=== PATIENT | female | born 1990 | race Caucasian/White ===

== ENCOUNTER 2022-12-11 07:55 | Emergency (ER) | payer MEDICAID, OTHER ==
[~2022-12-11] VITALS: Ht 162.6 cm; Wt 76.5 kg
[2022-12-11 08:14] VITALS: BP 119/78
[2022-12-11 09:19] LABS: Amphetamine Screen, Urine NEGATIVE (NEGATIVE); Barbiturate Scree,Urine NEGATIVE (NEGATIVE); Benzodiazephine Screen, Urine NEGATIVE (NEGATIVE); Cannabinoid Screen, Urine NEGATIVE (NEGATIVE); Cocaine Screen, Urine POSITIVE (NEGATIVE); Opiate Scree,Urine NEGATIVE (NEGATIVE); Phencyclidine Screen, Urine NEGATIVE (NEGATIVE)
== END 2022-12-11 18:24 | disposition left against medical advice (07) ==
LOC: ER 07:55
DX: R45.851 Suicidal ideations (principal)
CPT/HCPCS: 36415; 80307; 80320; 81025

== ENCOUNTER 2023-04-12 15:00 | Emergency (ER) | payer MEDICAID ==
[~2023-04-12] VITALS: Ht 162.6 cm; Wt 74.1 kg
[2023-04-12 15:17] VITALS: BP 119/67
[2023-04-12] MEDS ORDERED: IBUP-1456 PO (16:36)
== END 2023-04-12 16:49 | disposition home or self-care (01) ==
LOC: ER 15:00
DX: S06.899A Other specified intracranial injury with loss of consciousness of unspecified duration, initial encounter (principal); S00.03XA Contusion of scalp, initial encounter; Y04.2XXA Assault by strike against or bumped into by another person, initial encounter; Y93.89 Activity, other specified; Y92.89 Other specified places as the place of occurrence of the external cause; Y99.8 Other external cause status
CPT/HCPCS: 70450

== ENCOUNTER 2023-07-31 04:39 | Emergency (ER) | payer MEDICAID ==
[~2023-07-31] VITALS: Ht 162.6 cm; Wt 72.7 kg
[~2023-07-31 04:39] MED LIST: IBUP-1456 PO
[2023-07-31 04:50] VITALS: BP 136/92; PULSE 92; RESP 18; O2SAT 98
[2023-07-31 06:25] LABS: Amphetamine Screen, Urine Neg (NEGATIVE)
[2023-07-31 06:26] LABS: Barbiturate Scree,Urine Neg (NEGATIVE); Benzodiazephine Screen, Urine Neg (NEGATIVE); Cocaine Screen, Urine Pos (NEGATIVE); Opiate Scree,Urine Neg (NEGATIVE); Phencyclidine Screen, Urine Neg (NEGATIVE)
[2023-07-31 06:27] LABS: Cannabinoid Screen, Urine Neg (NEGATIVE)
== END 2023-07-31 07:37 | disposition left against medical advice (07) ==
LOC: ER 04:39
DX: R53.1 Weakness (principal); R20.2 Paresthesia of skin; F41.9 Anxiety disorder, unspecified; F32.9 Major depressive disorder, single episode, unspecified; Z79.899 Other long term (current) drug therapy; Z53.21 Procedure and treatment not carried out due to patient leaving prior to being seen by health care provider
CPT/HCPCS: 80307

== ENCOUNTER 2023-11-22 13:04 | Emergency (ER) | payer MEDICAID ==
[~2023-11-22] VITALS: Ht 162.6 cm; Wt 76.0 kg
[2023-11-22 15:11] VITALS: BP 124/82; PULSE 83; RESP 18; TEMP 97.8; O2SAT 96
[2023-11-22] MEDS ORDERED: OMEP-434 PO (15:19)
[2023-11-22] MEDS ORDERED: ZOFR4T PO (15:19)
[2023-11-22] MEDS: ONDANSETRON ODT 4 MG TAB PO ONE (15:20)
== END 2023-11-22 15:38 | disposition home or self-care (01) ==
LOC: ER 13:04
DX: R11.2 Nausea with vomiting, unspecified (principal); F14.10 Cocaine abuse, uncomplicated
CPT/HCPCS: 99283; Q0162

== ENCOUNTER 2024-03-14 19:51 | Emergency (ER) | payer MEDICAID ==
[~2024-03-14] VITALS: Ht 162.6 cm; Wt 70.0 kg
[~2024-03-14 19:51] MED LIST changes: +OMEP-434 PO; +ZOFR4T PO
[2024-03-14 20:00] VITALS: BP 132/81; PULSE 91; RESP 20; O2SAT 99
[2024-03-14 20:29] LABS: Basophils # (auto) 0.1 10 ^3/uL (0-0.2); Basophils % (auto) 0.5 % (0.0-2.0); Eosinophils # (auto) 0.4 10 ^3/uL (0-0.8); Eosinophils % (auto) 1.6 % (0.0-7.0); Lymphocytes # (auto) 1.2 10 ^3/uL (0.4-5.4); Lymphocytes % (auto) 5.1 % (10.0-50.0); Mean Corpuscular Hgb Conc. 31.5 g/dL (32.0-36.0); Mean Corpuscular Volume 101.5 fL (80.0-100.0); Monocytes # (auto) 1.9 10 ^3/uL (0-1.3); Neutrophils # (auto) 20.5 10 ^3/uL (1.6-8.6); Neutrophils % (auto) 84.8 % (37.0-80.0); Nucleated Red Blood Cells % 0.1 %; Red Blood Cells 3.45 10^6/uL (4.0-5.20); Red Cell Distribution Width 17.9 % (11.8-14.3); White Blood Cell 24.2 10^3/uL (4.4-10.8)
[2024-03-14 20:32] LABS: Urine Bacteria None Seen /hpf (None Seen)
[2024-03-14 20:39] LABS: Chloride 107 mmol/L (98-107); Sodium 142 mmol/L (136-145)
[2024-03-14 20:40] LABS: Anion Gap 6 (5-15); Calcium 10.1 mg/dL (8.5-10.1); Carbon Dioxide 29 mmol/L (20-30)
[2024-03-14 20:45] LABS: BUN/Creatinine Ratio 16.5 (10.0-20.0); Blood Urea Nitrogen 13 mg/dL (9-23); Glucose 92 mg/dL (74-106)
[2024-03-14 20:56] LABS: Urine Blood TRACE /uL (Negative); Urine Clarity Clear (Clear); Urine Color Light-Yellow (Yellow); Urine Hyaline Cast FEW /lpf (0 - 2); Urine Mucus FEW (None Seen); Urine Protein, UAD Negative (Negative); Urine Specific Gravity 1.025 (1.001-1.035); Urine Urobilinogen Normal (Negative); Urine WBC 2 /hpf (0 - 5); Urine pH 6.5 (5.0-9.0)
[2024-03-14 21:06] LABS: Amphetamine Screen, Urine Neg (NEGATIVE); Barbiturate Scree,Urine Neg (NEGATIVE); Benzodiazephine Screen, Urine Neg (NEGATIVE); Cannabinoid Screen, Urine Neg (NEGATIVE); Cocaine Screen, Urine Neg (NEGATIVE); Opiate Scree,Urine Neg (NEGATIVE); Phencyclidine Screen, Urine Neg (NEGATIVE)
== END 2024-03-15 00:53 | disposition home or self-care (01) ==
LOC: ER 19:51
DX: R53.1 Weakness (principal); C50.919 Malignant neoplasm of unspecified site of unspecified female breast; F12.10 Cannabis abuse, uncomplicated; Z51.11 Encounter for antineoplastic chemotherapy
CPT/HCPCS: 36415; 80048; 80307; 81001; 81025; 82962; 85025; 93005

== ENCOUNTER 2024-12-15 13:21 | Emergency (ER) | payer MEDICAID ==
[~2024-12-15] VITALS: Ht 162.6 cm; Wt 76.2 kg
--- NOTE | 2024-12-15 13:44 | ED.PDOC ---
GI ASSESSMENT HPI Comments 89 year old female presents to the ED with chief complaint of blood in stool. Patient reports that she had started to experience bright red blood in her stools since yesterday. Patient relays that she has a history of hemorrhoids, however, she is not sure if she has another one at this time causing the bleeding. Patient denies any constipation, N/V/D, abdominal pain, fever, or chills. Time Seen by MD: 13:32 Primary Care Provider: [facility] Reviewed Notes: Nurses Notes, Medications, Allergies Allergies: Coded Allergies: NO KNOWN ALLERGIES (Unverified , 12/11/22) Home Meds Active Scripts Omeprazole Magnesium (Omeprazole) 20 Mg Tab, 20 MG PO DAILY, #30 TAB Prov:TAYO MOBLEY 11/22/23 Ondansetron Odt 4MG Tab (ZOFRAN PO) 4 Mg Tb, 4 MG PO BID, #20 TAB ODT TAB-DISSOLVE IN MOUTH, THEN SWALLOW Prov:TAYO MOBLEY 11/22/23 Ibuprofen (Ibuprofen) 800 Mg Tab, 1 TAB PO TID, #30 TAB Prov:TAYO MOBLEY 04/12/23 Information Source: Patient Mode of Arrival: Ambulatory Timing: Days Duration: Since onset Prehospital treatment: None Quality: None Vomitus: None Stool: Normal, Blood Streaked Severity: Moderate Recent: None Recent Hx of: None Pain Location: None Modifying Factors: Nothing Associated sign and symptoms: Blood in Stool Past Medical History PAST MEDICAL HISTORY: Cancer Surgical History: Denies all surgeries IP ATTORNEY History: Denies all IP ATTORNEY Hx Family History Family History: Reviewed,noncontributory to illness Social History Smoker: Non-Smoker Alcohol: Occasionally Drugs: Cocaine Lives In: Home Constitutional: denies: chills, diaphoresis, fatigue, fever, malaise, sweats, weakness, others EENTM: denies: blurred vision, double vision, ear bleeding, ear discharge, ear drainage, ear pain, ear ringing, eye pain, eye redness, hearing loss, mouth pain, mouth swelling, nasal discharge, nose bleeding, nose congestion, nose pain, photophobia, tearing, throat pain, throat swelling, voice changes, others Respiratory: denies: cough, hemoptysis, orthopnea, SOB at rest, shortness of breath, SOB with excertion, stridor, wheezing, others Cardiovascular: denies: chest pain, dizzy spells, diaphoresis, Dyspnea on exertion, edema, irregular heart beat, left arm pain, lightheadedness, palpitations, PND, syncope, others Gastrointestinal: denies: abdomen distended, abdominal pain, blood streaked bowels, constipated, diarrhea, dysphagia, difficulty swallowing, hematemesis, melena, nausea, poor appetite, poor fluid intake, rectal bleeding, rectal pain, vomiting, others Genitourinary: denies: abnormal vagina bleeding, burning, dyspareunia, dysuria, flank pain, frequency, hematuria, incontinence, pain, , vagina discharge, urgency, others Neurological: denies: dizziness, fainting, headache, left sided numbness, left sided weakness, numbness, paresthesia, pre-existing deficit, right sided numbness, right sided weakness, seizure, speech problems, tingling, tremors, weakness, others Musculoskeletal: denies: back pain, gout, joint pain, joint swelling, muscle pain, muscle stiffness, neck pain, others Integumetry: denies: bruises, change in color, change in hair/nails, dryness, laceration, lesions, lumps, rash, wounds, others Allergic/Immunocompromised: denies: Difficulty Healing, Frequent Infections, Hives, Itching, others Hematologic/Lymphatic: denies: anemia, blood clots, easy bleeding, easy bruising, swollen glands, others Endocrine: denies: excessive hunger, excessive sweating, excessive thirst, excessive urination, flushing, intolerance to cold, intolerance to heat, unexplained weight gain, unexplained weight loss, others Psychiatric: denies: anxiety, bipolar disorder, depression, hopeless, panic disorder, schizophrenia, sleepless, suicidal, others All Other Systems: Reviewed and Negative Physical Exam General Appearance: Moderate Distress, Normal HEENT: Normal ENT Inspection, PERRL/EOMI Neck: Full Range of Motion, Non-Tender, Normal, Normal Inspection Respiratory: Chest Non-Tender, Lungs Clear, No Accessory Muscle Use, No Respiratory Distress, Normal Breath Sounds Cardiovascular: No Edema, No JVD, No Murmur, No Gallop, Normal Peripheral Pulses, Regular Rate/Rhythm Breast Exam: Deferred Gastrointestinal: No Organomegaly, Non Tender, No Pulsatile Mass, Normal Bowel Sounds, Soft Genitalia: Deferred Pelvic: Deferred Rectal: Deferred Extremities: No calf tenderness, Normal capillary refill, Normal inspection, Normal range of motion, Non-tender, No pedal edema Musculoskeletal : Apperance: Normal Neurologic: Alert, palliative care specialist II-XII nml as Tested, No Motor Deficits, Normal Affect, Normal Mood, No Sensory Deficits Cerebellar Function: Normal Reflexes: Normal Skin: Dry, Normal Color, Warm Peripheral Pulses: 3+ Radial (R), 3+ Radial (L) Lymphatic: No Adenopathy Was a procedure done? Was a procedure done?: No GI differential Dx Differential Diagnosis: Constipation, Diverticular disease, Esophagitis, Gastritis/PUD, Gastroenteritis X-Ray, Labs, Meds, VS Vital Signs Date Time Temp Pulse Resp B/P (MAP) Pulse Ox O2 Delivery O2 Flow Rate FiO2 12/15/24 13:30 98.1 80 20 117/76 (90) 96 Lab Test 12/15/24 14:25 Range/Units White Blood Count 3.5 L 4.4-10.8 10^3/uL Red Blood Count 3.08 L 4.0-5.20 10^6/uL Hemoglobin 11.9 L 12.2-16.2 g/dL Hematocrit 33.8 L 36.0-46.0 % Mean Corpuscular Volume 109.7 H 80.0-100.0 fL Mean Corpuscular Hemoglobin 38.6 H 28.0-32.0 pg Mean Corpuscular Hemoglobin Concent 35.2 32.0-36.0 g/dL Red Cell Distribution Width 13.5 11.8-14.3 % Platelet Count 235 140-450 10^3/uL Mean Platelet Volume 6.2 L 6.9-10.8 fL Neutrophils (%) (Auto) 68.3 37.0-80.0 % Lymphocytes (%) (Auto) 18.1 10.0-50.0 % Monocytes (%) (Auto) 10.2 0.0-12.0 % Eosinophils (%) (Auto) 2.6 0.0-7.0 % Basophils (%) (Auto) 0.8 0.0-2.0 % Neutrophils # (Auto) 2.4 1.6-8.6 10 ^3/uL Lymphocytes # (Auto) 0.6 0.4-5.4 10 ^3/uL Monocytes # (Auto) 0.4 0-1.3 10 ^3/uL Eosinophils # (Auto) 0.1 0-0.8 10 ^3/uL Basophils # (Auto) 0 0-0.2 10 ^3/uL Nucleated Red Blood Cells 0.0 % Sodium Level 141 136-145 mmol/L Potassium Level 3.6 3.5-5.1 mmol/L Chloride Level 106 98-107 mmol/L Carbon Dioxide Level 28 20-31 mmol/L Anion Gap 7 5-15 Blood Urea Nitrogen 12 9-23 mg/dL Creatinine 0.88 0.550-1.02 mg/dL Glomerular Filtration Rate Calc 88 >90 mL/min BUN/Creatinine Ratio 13.6 10.0-20.0 Serum Glucose 84 74-106 mg/dL Calcium Level 10.6 H 8.7-10.4 mg/dL Patient alert. Complaining of bright red blood per rectum. History of hemorrhoid. Vitals stable. Answering questions. Hemoglobin above 10. Abdomen is soft nontender. [place] in color. [place] nailbeds. No sign of anemia. Heart rate within normal limits. Saturation pristine on room air. No sign of any sepsis. Was given prescription of Anusol. Explained to the patient. Was told to follow up with her primary care physician. Was told to come back if there is any problem. Time of 1ST Reevaluation: 14:32 Reevaluation 1ST: Improved Patient Education/Counseling: Diagnosis, Treatment Family Education/Counseling: No Family Present Additional Information Previous visit documents reviewed: 03/14/24 for generalized weakness The following tests were ordered, and results were reviewed by me: CBC, BMP, UA Additional Information was gathered from interviewing the following independent historians: None I reviewed and agreed with the following test results read by other providers: None I discussed treatment and results with medical personnel. Departure 1 Departure Time of Disposition: 15:32 Impression: Primary Impression: Hemorrhoid Qualified Codes: K64.9 - Unspecified hemorrhoids Disposition: HOME / SELF CARE / HOMELESS Condition: Good e-Prescriptions Hydrocortisone Base (Anusol-Hc) 2.5 % Cre 1 APPLIC TOP BID for 10 Days, #30 GRAMS 1 Refill Prov: MARSHA LAWRENCE MD 12/15/24 Discharged With: Self Critical Care Note Critical Care Time?: No Stability Stability form required: No Heart Score Heart Score: Heart Score Response (Comments) Value History N/A 0 EKG N/A 0 Age N/A 0 Risk Factors N/A 0 Troponin N/A 0 Total 0 I personally scribed for MARSHA LAWRENCE MD ([email or web address]) on 12/15/24 at 13:44. Electronically submitted by Gustavo Ye ([email or web address]). MARSHA LAWRENCE MD Dec 15, 2024 13:44
[2024-12-15 14:56] LABS: Basophils # (auto) 0 10 ^3/uL (0-0.2); Eosinophils # (auto) 0.1 10 ^3/uL (0-0.8); Eosinophils % (auto) 2.6 % (0.0-7.0); Hemoglobin 11.9 g/dL (12.2-16.2); Lymphocytes # (auto) 0.6 10 ^3/uL (0.4-5.4); Monocytes # (auto) 0.4 10 ^3/uL (0-1.3)
[2024-12-15 14:58] LABS: Basophils % (auto) 0.8 % (0.0-2.0); Hematocrit 33.8 % (36.0-46.0); Lymphocytes % (auto) 18.1 % (10.0-50.0); Mean Corpuscular Hemoglobin 38.6 pg (28.0-32.0); Mean Corpuscular Hgb Conc. 35.2 g/dL (32.0-36.0); Mean Corpuscular Volume 109.7 fL (80.0-100.0); Monocytes % (auto) 10.2 % (0.0-12.0); Neutrophils # (auto) 2.4 10 ^3/uL (1.6-8.6); Neutrophils % (auto) 68.3 % (37.0-80.0); Platelet Count (auto) 235 10^3/uL (140-450); Red Blood Cells 3.08 10^6/uL (4.0-5.20); Red Cell Distribution Width 13.5 % (11.8-14.3); White Blood Cell 3.5 10^3/uL (4.4-10.8)
[2024-12-15 14:59] LABS: Chloride 106 mmol/L (98-107); Potassium 3.6 mmol/L (3.5-5.1); Sodium 141 mmol/L (136-145)
[2024-12-15 15:00] LABS: Anion Gap 7 (5-15); Carbon Dioxide 28 mmol/L (20-31)
[2024-12-15 15:05] LABS: BUN/Creatinine Ratio 13.6 (10.0-20.0); Blood Urea Nitrogen 12 mg/dL (9-23); Glucose 84 mg/dL (74-106)
[2024-12-15 15:06] LABS: Calcium 10.6 mg/dL (8.7-10.4)
[2024-12-15] MEDS ORDERED: HYDR2.5C39 TOP (15:33)
[2024-12-15 15:43] VITALS: BP 127/77; PULSE 77; RESP 17; TEMP 98; O2SAT 97
[2024-12-15 17:23] LABS: Urine Bacteria None Seen /hpf (None Seen)
[2024-12-15 17:37] LABS: Urine Blood TRACE /uL (Negative); Urine Clarity Clear (Clear); Urine Color Light-Yellow (Yellow); Urine Mucus FEW (None Seen); Urine Protein, UAD Negative (Negative); Urine Specific Gravity 1.022 (1.001-1.035); Urine Squamous Epithelial Cell FEW /hpf (<5); Urine Urobilinogen Normal (Negative); Urine WBC 18 /HPF (0-5); Urine pH 5.5 (5.0-9.0)
== END 2024-12-15 15:47 | disposition home or self-care (01) ==
LOC: ER 13:21
DX: K64.9 Unspecified hemorrhoids (principal); Z79.1 Long term (current) use of non-steroidal anti-inflammatories (NSAID); Z79.899 Other long term (current) drug therapy
CPT/HCPCS: 36415; 80048; 81001; 85025

== ENCOUNTER 2025-06-28 00:36 | Emergency (ER) | payer MEDICAID ==
[~2025-06-28] VITALS: Ht 162.6 cm; Wt 68.4 kg
[~2025-06-28 00:36] MED LIST changes: +HYDR2.5C39 TOP
--- NOTE | 2025-06-28 01:10 | DVH ---
CHEST RADIOGRAPH Indication: cp Technique: Single frontal view of the chest was obtained COMPARISON: None FINDINGS: Lines and Tubes: None Lungs: Clear Pleura: No effusion. No pneumothorax. Cardiomediastinal contours: Unremarkable Bones: Unremarkable. Right axillary surgical clips. IMPRESSION: 1. No acute cardiopulmonary disease.
[2025-06-28] MEDS: KETOROLAC TROMETH 30 MG/ML 1ML VIAL IM ONE (01:39)
[2025-06-28 01:41] VITALS: RESP 19; O2SAT 100
[2025-06-28 01:46] LABS: Hematocrit 37.0 % (36.0-46.0); Hemoglobin 12.8 g/dL (12.2-16.2); Mean Corpuscular Hemoglobin 38.1 pg (28.0-32.0); Mean Corpuscular Volume 110.0 fL (80.0-100.0); Nucleated Red Blood Cells % 0.1 %
[2025-06-28 01:53] LABS: Potassium 3.5 mmol/L (3.5-5.1); Sodium 143 mmol/L (136-145)
[2025-06-28 01:54] LABS: Anion Gap 9 (5-15); Calcium 9.4 mg/dL (8.7-10.4); Carbon Dioxide 26 mmol/L (20-31)
[2025-06-28 01:59] LABS: BUN/Creatinine Ratio 11.7 (10.0-20.0); Blood Urea Nitrogen 12 mg/dL (9-23); Chloride 108 mmol/L (98-107); Glucose 107 mg/dL (74-106)
--- NOTE | 2025-06-28 03:04 | ED.PDOC ---
History of Present Illness HPI Comments 34-year-old female who presents with complaint of constant, right chest and shoulder pain for 1 week. No endorsement of any recent trauma or injury. Significant history for in remission breast cancer. Denies any shortness of breath, nausea, vomiting, or further associated symptoms. REVIEW OF SYSTEMS: General: No fever, no chills, or fatigue HEENT: No sore throat, no earache, no congestion, no neck pain. Cardiac: chest pain. No palpitations. Lungs: No shortness of breath, no cough. GI: No nausea, no vomiting, no diarrhea, no constipation, no abdominal pain : No dysuria, frequency, or urgency. No hematuria. Musculoskeletal: Right shoulder pain , no joint swelling, no extremity edema. Skin: No rash, no itching. Neuro: No headache, no dizziness, no weakness PHYSICAL EXAM: General: Awake, alert and oriented. No acute distress. Skin: Skin in warm, dry and intact. Appropriate color for ethnicity. HEENT: The head is normocephalic and atraumatic. Conjunctivae are clear without exudates or hemorrhage. Sclera is non-icteric. EOM are intact. No signs of nystagmus. Eyelids are normal in appearance without swelling or lesions. Oral mucosa is pink and moist Neck: The neck is supple with normal range of motion. No JVD. Cardiac: Heart rate and rhythm are normal. No murmurs, gallops, or rubs are auscultated. Respiratory: No signs of respiratory distress. Lung sounds are clear in all lobes bilaterally without rales, rhonchi, or wheezes. Abdominal: Abdomen is soft, non-tender without distention, guarding or rigidity. Bowel sounds are present and normoactive in all four quadrants. Extremities: Posterior right shoulder tenderness with painful range of motion but no signs of deformity, diffusion, or erythema. Upper and lower extremities are atraumatic in appearance without deformity or edema. Musculoskeletal: Right anterior chest wall tenderness. Neurological: The patient is awake, alert and oriented to person, place, and time with normal speech. Speech is clear. There is no facial asymmetry. Psychiatric: Appropriate mood and affect. Good judgement and insight. Chief Complaint: Chest Pain Time Seen by MD: 01:13 Primary Care Provider: HADICHI Allergies: Coded Allergies: NO KNOWN ALLERGIES (Unverified , 12/11/22) Home Meds Active Scripts Hydrocortisone Base (Anusol-Hc) 2.5 % Cre, 1 APPLIC TOP BID for 10 Days, #30 GRAMS 1 Refill Prov:MARSHA LAWRENCE MD 12/15/24 Omeprazole Magnesium (Omeprazole) 20 Mg Tab, 20 MG PO DAILY, #30 TAB Prov:TAYO MOBLEY 11/22/23 Ondansetron Odt 4MG Tab (ZOFRAN PO) 4 Mg Tb, 4 MG PO BID, #20 TAB ODT TAB-DISSOLVE IN MOUTH, THEN SWALLOW Prov:TAYO MOBLEY 11/22/23 Ibuprofen (Ibuprofen) 800 Mg Tab, 1 TAB PO TID, #30 TAB Prov:TAYO MOBLEY 04/12/23 Information Source: Patient Mode of Arrival: Ambulatory Past Medical History PAST MEDICAL HISTORY: Cancer Surgical History: Denies all surgeries 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 Was a procedure done?: No EKG EKG #1: Pulse Rate (adult): 97 [place]: Normal Cardiac Rhythm: NSR Block: None Hypertrophy: None ST: Normal EKG #2: Pulse Rate (adult): 64 [place]: Normal Cardiac Rhythm: NSR Block: None Hypertrophy: None ST: Normal EKG #3: Pulse Rate (adult): 54 [place]: Normal Cardiac Rhythm: NSR Block: None Hypertrophy: None ST: Normal Differential Dx Considerations may include: Differential diagnoses considered include acute ischemic coronary syndrome, aortic dissection, cardiac tamponade, mediastinitis, pulmonary embolus, pneumothorax, tension pneumothorax, esophageal rupture, coronary artery vasospasm, myocarditis, pericarditis, pneumonia, pulmonary edema, esophageal tear, pancreatitis, aortic stenosis, dilated cardiomyopathy, hypertrophic cardiomyopathy, mitral valve prolapse, malignancy, pleuritis, pneumomediastinum, primary pulmonary hypertension, cholecystitis, esophageal spasm, esophagus, gastritis, GERD, peptic ulcer disease, costochondritis, fibromyalgia, rib fracture, herpes zoster, radicular syndromes, thoracic outlet syndrome, somatization. X-Ray, Labs, Meds, VS Vital Signs Date Time Temp Pulse Resp B/P (MAP) Pulse Ox O2 Delivery O2 Flow Rate FiO2 06/28/25 05:26 98.2 60 16 117/55 (75) 99 98.2 06/28/25 05:17 54 06/28/25 04:13 54 06/28/25 02:10 64 06/28/25 01:41 19 100 Room Air* 0 21 06/28/25 01:34 73 22 94/53 (67) 100 06/28/25 00:50 99.6 108 22 114/69 96 99.6 06/28/25 00:41 97 Lab Test 06/28/25 04:43 06/28/25 02:50 06/28/25 01:24 Range/Units Troponin I High Sensitivity < 3 L < 3 L < 3 L </=34 ng/L White Blood Count 3.7 L 4.4-10.8 10^3/uL Red Blood Count 3.36 L 4.0-5.20 10^6/uL Hemoglobin 12.8 12.2-16.2 g/dL Hematocrit 37.0 36.0-46.0 % Mean Corpuscular Volume 110.0 H 80.0-100.0 fL Mean Corpuscular Hemoglobin 38.1 H 28.0-32.0 pg Mean Corpuscular Hemoglobin Concent 34.6 32.0-36.0 g/dL Red Cell Distribution Width 12.4 11.8-14.3 % Platelet Count 200 140-450 10^3/uL Mean Platelet Volume 6.9 6.9-10.8 fL Neutrophils (%) (Auto) 54.7 37.0-80.0 % Lymphocytes (%) (Auto) 28.7 10.0-50.0 % Monocytes (%) (Auto) 11.7 0.0-12.0 % Eosinophils (%) (Auto) 3.8 0.0-7.0 % Basophils (%) (Auto) 1.1 0.0-2.0 % Neutrophils # (Auto) 2.0 1.6-8.6 10 ^3/uL Lymphocytes # (Auto) 1.1 0.4-5.4 10 ^3/uL Monocytes # (Auto) 0.4 0-1.3 10 ^3/uL Eosinophils # (Auto) 0.1 0-0.8 10 ^3/uL Basophils # (Auto) 0 0-0.2 10 ^3/uL Nucleated Red Blood Cells 0.1 % D-Dimer, Quantitative 0.22 0.0-0.49 mg/L FEU Sodium Level 143 136-145 mmol/L Potassium Level 3.5 3.5-5.1 mmol/L Chloride Level 108 H 98-107 mmol/L Carbon Dioxide Level 26 20-31 mmol/L Anion Gap 9 5-15 Blood Urea Nitrogen 12 9-23 mg/dL Creatinine 1.03 H 0.550-1.02 mg/dL Glomerular Filtration Rate Calc 73 >90 mL/min BUN/Creatinine Ratio 11.7 10.0-20.0 Serum Glucose 107 H 74-106 mg/dL Calcium Level 9.4 8.7-10.4 mg/dL B-Type Natriuretic Peptide 12.94 0-100 pg/mL [place] [id number] Ph: [phone] DIAGNOSTIC IMAGING Diagnostic Imaging Report : [id number] Signed PATIENT: PEDRO HERRERA ACCT: [id number] UNIT: [id number] : 1990 LOC: ER ROOM / BED: / AGE / SEX: 34 / F ADM STATUS: REG ER SERVICE ORDERING PHYSICIAN: FLORENCE VALVERDE MD PROCEDURE(s): CXR1 - CHEST XRAY 1 VIEW REASON: cp ORDER NUMBER(s): [id number], ACCESSION NUMBER(s): [id number] CHEST RADIOGRAPH Indication: cp Technique: Single frontal view of the chest was obtained COMPARISON: None FINDINGS: Lines and Tubes: None Lungs: Clear Pleura: No effusion. No pneumothorax. Cardiomediastinal contours: Unremarkable Bones: Unremarkable. Right axillary surgical clips. IMPRESSION: 1. No acute cardiopulmonary disease. ATED BY: JACK DEMPSEY MD DICTATED DATE/TIME: 06/28/25106 SIGNED BY: JACK DEMPSEY MD SIGNED DATE/TIME: 06/28/25106 CC: Time of 1ST Reevaluation: 01:43 Reevaluation 1ST: Unchanged Patient Education/Counseling: Treatment, Need For Follow Up Family Education/Counseling: No Family Present SEPSIS Sepsis Screen Date sepsis recognized/suspect: Jun 28, 2025 Time Sepsis recognized/suspect: 55 Recent Procedure: No On Antibiotic Therapy: No Respiratory Rate >20: No Heart Rate >90: No Temp<36 C (96.8 F) or >38.3 C: No SBP <90 or MAP <65 mmHG: No New Acute Mental Status Change: No Is the patient on CPAP, BIPAP,: No Physician Orders Chest Xray 1 View (06/28/25 00:51) Patient Case Manager (06/28/25 ) Vital Signs Date Time Temp Pulse Resp B/P (MAP) Pulse Ox O2 Delivery O2 Flow Rate FiO2 06/28/25 05:26 98.2 60 16 117/55 (75) 99 98.2 06/28/25 05:17 54 06/28/25 04:13 54 06/28/25 02:10 64 06/28/25 01:41 19 100 Room Air* 0 21 06/28/25 01:34 73 22 94/53 (67) 100 06/28/25 00:50 99.6 108 22 114/69 96 99.6 06/28/25 00:41 97 Laboratory Tests Test 06/28/25 01:24 White Blood Count 3.7 10^3/uL (4.4-10.8) L Departure 1 Departure Time of Disposition: 04:30 Impression: Primary Impression: Chest pain Disposition: HOME / SELF CARE / HOMELESS Condition: Stable Additional Instructions: ED DISCHARGE INSTRUCTIONS Instructions: Please read all instructions provided in this packet carefully. Although you have been discharged from the Emergency Department, this does not mean that you have a "clean bill of health". No definitive diagnosis for your symptoms has been made today. It is possible that you are in the process of developing a serious illness. This is why you must return to the ED without fail if any new or worsening symptoms (especially if your symptoms include chest pain, trouble breathing, abdominal pain, fever, headache, confusion, trouble seeing, or trouble walking) It is also very important that you see a primary care provider (PCP) within the next 3-5 days to follow up. If you are unable to get an appointment, return to the ED for re-evaluation. CHEST PAIN EDUCATION There are many things that can cause chest pain. Some are not serious and will get better on their own in a few days. But some kinds of chest pain need more testing and treatment. Your doctor may have recommended a follow-up visit in the next few days. If you are not getting better, you may need more tests or treatment. Even though your doctor has released you, you still need to watch for any problems. The doctor carefully checked you, but sometimes problems can develop later. If you have new symptoms or if your symptoms do not get better, get medical care right away. If you have worse or different chest pain or pressure that lasts more than 5 minutes or you passed out (lost consciousness), call 911 or seek other emergency help right away. A medical visit is only one step in your treatment. Even if you feel better, you still need to do what your doctor recommends, such as going to all suggested follow-up appointments and taking medicines exactly as directed. This will help you recover and help prevent future problems. How can you care for yourself at home? Rest until you feel better. Take your medicine exactly as prescribed. Call your doctor if you think you are having a problem with your medicine. Do not drive after taking a prescription pain medicine. When should you call for help? Call 911 if: You passed out (lost consciousness). You have severe difficulty breathing. You have symptoms of a heart attack. These may include: Chest pain or pressure, or a strange feeling in your chest. Sweating. Shortness of breath. Nausea or vomiting. Pain, pressure, or a strange feeling in your back, neck, jaw, or upper belly or in one or both shoulders or arms. Lightheadedness or sudden weakness. A fast or irregular heartbeat. After you call 911, the roll over press operator may tell you to chew 1 adult-strength or 2 to 4 low-dose aspirin. Wait for an ambulance. Do not try to drive yourself. Call your doctor now or seek immediate medical care if: You have any trouble breathing. You have new or different chest pain. You are dizzy or lightheaded, or you feel like you may faint. Watch closely for changes in your health, and be sure to contact your doctor if you do not get better as expected. Current as of: May 13, 2024 Author: [employer] Staff Comments MDM: 34-year-old female with right-sided chest pain. EKG negative for signs of ischemia. High sensitivity troponin negative. CXR shows no acute process. Presentation not suggestive of acute coronary syndrome, pulmonary embolism or aortic dissection. Patient improved at time of discharge. Patient has not been hypoxic, in re spiratory distress or dyspneic during the ED observation. Patient able to ambulate without difficulty. Patient felt stable for discharge to follow up with PCP promptly. Patient advised to return to the ED with any new, worsening or concerning symptoms or inability to follow up with PCP. Extensive evaluation was performed in attempt to identify or rule out: (See differential diagnosis section) The following tests were ordered, and results were reviewed by me and discussed with patient: (See diagnostic results section) The following test were independently interpreted by me: EKG I reviewed and agreed with the following test results read by other providers: Chest x-ray Decision regarding hospitalization or escalation of hospital level of care: Risks and benefits of admission for further treatment of patient's condition was considered however due to patient's stable condition patient will be discharged to follow up closely or return to care for worsening of condition or inability to follow up. Critical Care Note Critical Care Time?: No Stability Stability form required: No Heart Score Heart Score: Heart Score Response (Comments) Value History N/A 0 EKG N/A 0 Age N/A 0 Risk Factors N/A 0 Troponin N/A 0 Total 0 I personally scribed for FLORENCE VALVERDE MD ([email or web address]) on 06/28/25 at 03:04. Electronically submitted by Bartolo Loo ([email or web address]). I personally scribed for FLORENCE VALVERDE MD ([email or web address]) on 06/28/25 at 05:17. Electronically submitted by Bartolo Loo ([email or web address]). FLORENCE VALVERDE MD Jun 28, 2025 03:04
[2025-06-28 05:26] VITALS: BP 117/55; PULSE 60; RESP 16; TEMP 98.2; O2SAT 99
--- NOTE | 2025-06-28 08:21 | ECG ---
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
--- NOTE | 2025-06-28 08:22 | ECG ---
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
--- NOTE | 2025-06-28 08:23 | ECG ---
[facility] Test Date: 2025-06-28 Test Time: 00:41:21 Pat Name: PEDRO HERRERA Department[facility] Patient ID: [id number] Room: Gender: F Donor Services Manager: lilliam : 1990 Requested By: FLORENCE VALVERDE Order Number: [id number] Reading MD: Johan Tom Measurements Intervals [place] Rate: 97 P: 0 [place]: 0 QRS: 64 QRSD: 71 T: 27 QT: 369 QTc: 469 Interpretive Statements Atrial fibrillation Low voltage, precordial leads RSR' in V1 or V2, probably normal variant Borderline repolarization abnormality Electronically Signed On 06-30-2025 9:51:13 PDT by Johan Tom Please click the below link to view image of tracing.
== END 2025-06-28 05:30 | disposition home or self-care (01) ==
LOC: ER 00:47
DX: R07.89 Other chest pain (principal); Z79.899 Other long term (current) drug therapy
CPT/HCPCS: 36415; 71045; 80048; 83880; 84484; 85025; 85379; 93005; 96372; 99285; J1885